=== PATIENT | male | born 1980 | race Caucasian/White ===

== ENCOUNTER 2016-08-17 14:30 | Emergency (ER) | payer BC | END 2016-08-17 15:50 | disposition home or self-care (01) | LOC: ER 14:30 | DX: S22.32XA Fracture of one rib, left side, initial encounter for closed fracture (principal); V19.3XXA Pedal cyclist (driver) (passenger) injured in unspecified nontraffic accident, initial encounter ==

== ENCOUNTER 2016-09-20 10:12 | Emergency (ER) | payer SELFPAY | END 2016-09-20 14:16 | disposition home or self-care (01) | LOC: ER 10:12 | DX: N45.1 Epididymitis (principal) | CPT/HCPCS: 96372; J0696; J1885 ==